=== PATIENT | male | born 1955 ===

== ENCOUNTER 2017-10-11 12:43 | Day surgery (SDC) | payer MEDICARE, BC ==
[~2017-10-11 12:43] MED LIST: Hair, Skin & N1 EACH PO; LISI20 PO; METF850 PO; MORP60ER PO; OMEP20ER PO; Zanaflex4 MG PO
== END 2017-10-11 23:16 | disposition home or self-care (01) ==
LOC: WOUND 12:43
DX: Z48.00 Encounter for change or removal of nonsurgical wound dressing (principal); E11.621 Type 2 diabetes mellitus with foot ulcer; E11.21 Type 2 diabetes mellitus with diabetic nephropathy; I70.209 Unspecified atherosclerosis of native arteries of extremities, unspecified extremity; I10 Essential (primary) hypertension; J44.9 Chronic obstructive pulmonary disease, unspecified; L97.529 Non-pressure chronic ulcer of other part of left foot with unspecified severity
CPT/HCPCS: G0463

== ENCOUNTER 2017-10-15 10:58 | Day surgery (SDC) | payer MEDICARE, BC | END 2017-10-15 15:03 | disposition home or self-care (01) | LOC: WOUND 10:58 | PROC: 2W3RX2Z Immobilization of Left Lower Leg using Cast (ICD-10-PCS; principal; 2017-10-15) | DX: Z48.00 Encounter for change or removal of nonsurgical wound dressing (principal); E11.621 Type 2 diabetes mellitus with foot ulcer; I70.209 Unspecified atherosclerosis of native arteries of extremities, unspecified extremity; I10 Essential (primary) hypertension; J44.9 Chronic obstructive pulmonary disease, unspecified; E11.21 Type 2 diabetes mellitus with diabetic nephropathy; Z89.412 Acquired absence of left great toe | CPT/HCPCS: G0463 ==

== ENCOUNTER 2017-10-22 10:18 | Day surgery (SDC) | payer MEDICARE, BC | END 2017-10-22 22:57 | disposition home or self-care (01) | LOC: WOUND 10:18 | DX: Z48.00 Encounter for change or removal of nonsurgical wound dressing (principal); E11.621 Type 2 diabetes mellitus with foot ulcer; I70.209 Unspecified atherosclerosis of native arteries of extremities, unspecified extremity; I10 Essential (primary) hypertension; J44.9 Chronic obstructive pulmonary disease, unspecified; L97.529 Non-pressure chronic ulcer of other part of left foot with unspecified severity | CPT/HCPCS: G0463 ==

== ENCOUNTER 2017-10-23 13:00 | Day surgery (SDC) | payer MEDICARE, BC | END 2017-10-23 13:34 | disposition home or self-care (01) | LOC: WOUND 13:00 | DX: Z48.00 Encounter for change or removal of nonsurgical wound dressing (principal); E11.621 Type 2 diabetes mellitus with foot ulcer; L97.529 Non-pressure chronic ulcer of other part of left foot with unspecified severity; I70.209 Unspecified atherosclerosis of native arteries of extremities, unspecified extremity; I10 Essential (primary) hypertension; J44.9 Chronic obstructive pulmonary disease, unspecified; E11.21 Type 2 diabetes mellitus with diabetic nephropathy | CPT/HCPCS: 93922; G0463 ==

== ENCOUNTER 2017-10-25 08:00 | Day surgery (SDC) | payer MEDICARE, BC | END 2017-10-25 11:00 | disposition home or self-care (01) | LOC: WOUND 08:00 | DX: Z48.00 Encounter for change or removal of nonsurgical wound dressing (principal); E11.621 Type 2 diabetes mellitus with foot ulcer; I70.209 Unspecified atherosclerosis of native arteries of extremities, unspecified extremity; I10 Essential (primary) hypertension; J44.9 Chronic obstructive pulmonary disease, unspecified; E11.21 Type 2 diabetes mellitus with diabetic nephropathy; L97.529 Non-pressure chronic ulcer of other part of left foot with unspecified severity ==

== ENCOUNTER 2017-10-29 12:33 | Day surgery (SDC) | payer MEDICARE, BC | END 2017-10-29 23:09 | disposition home or self-care (01) | LOC: WOUND 12:33 | DX: Z48.00 Encounter for change or removal of nonsurgical wound dressing (principal); E11.621 Type 2 diabetes mellitus with foot ulcer; I70.209 Unspecified atherosclerosis of native arteries of extremities, unspecified extremity; I10 Essential (primary) hypertension; E11.21 Type 2 diabetes mellitus with diabetic nephropathy; J44.9 Chronic obstructive pulmonary disease, unspecified; L97.529 Non-pressure chronic ulcer of other part of left foot with unspecified severity | CPT/HCPCS: G0463 ==

== ENCOUNTER 2017-11-01 12:30 | Day surgery (SDC) | payer MEDICARE, BC | END 2017-11-01 14:55 | disposition home or self-care (01) | LOC: WOUND 12:30 | DX: Z48.00 Encounter for change or removal of nonsurgical wound dressing (principal); E11.621 Type 2 diabetes mellitus with foot ulcer; I70.209 Unspecified atherosclerosis of native arteries of extremities, unspecified extremity; E11.21 Type 2 diabetes mellitus with diabetic nephropathy; I10 Essential (primary) hypertension; J44.9 Chronic obstructive pulmonary disease, unspecified; L97.529 Non-pressure chronic ulcer of other part of left foot with unspecified severity | CPT/HCPCS: G0463 ==

== ENCOUNTER 2017-11-08 00:54 | Day surgery (SDC) | payer MEDICARE, BC | END 2017-11-08 22:47 | disposition home or self-care (01) | LOC: WOUND 00:54 | PROC: 0HBNXZZ Excision of Left Foot Skin, External Approach (ICD-10-PCS; principal; 2017-11-08) | DX: Z48.00 Encounter for change or removal of nonsurgical wound dressing (principal); E11.621 Type 2 diabetes mellitus with foot ulcer; E11.21 Type 2 diabetes mellitus with diabetic nephropathy; L97.529 Non-pressure chronic ulcer of other part of left foot with unspecified severity; I70.209 Unspecified atherosclerosis of native arteries of extremities, unspecified extremity; I10 Essential (primary) hypertension; J44.9 Chronic obstructive pulmonary disease, unspecified | CPT/HCPCS: G0463 ==

== ENCOUNTER 2017-11-15 12:30 | Day surgery (SDC) | payer MEDICARE, BC | END 2017-11-15 14:21 | disposition home or self-care (01) | LOC: WOUND 12:30 | DX: Z48.00 Encounter for change or removal of nonsurgical wound dressing (principal); E11.621 Type 2 diabetes mellitus with foot ulcer; I70.209 Unspecified atherosclerosis of native arteries of extremities, unspecified extremity; I10 Essential (primary) hypertension; J44.9 Chronic obstructive pulmonary disease, unspecified; E11.21 Type 2 diabetes mellitus with diabetic nephropathy; L97.529 Non-pressure chronic ulcer of other part of left foot with unspecified severity | CPT/HCPCS: G0463 ==

== ENCOUNTER 2017-11-23 00:40 | Day surgery (SDC) | payer MEDICARE, BC | END 2017-11-23 22:00 | disposition home or self-care (01) | LOC: WOUND 00:40 | DX: Z48.00 Encounter for change or removal of nonsurgical wound dressing (principal); E11.621 Type 2 diabetes mellitus with foot ulcer; L97.529 Non-pressure chronic ulcer of other part of left foot with unspecified severity; I70.209 Unspecified atherosclerosis of native arteries of extremities, unspecified extremity; I10 Essential (primary) hypertension; J44.9 Chronic obstructive pulmonary disease, unspecified; E11.21 Type 2 diabetes mellitus with diabetic nephropathy | CPT/HCPCS: G0463 ==

== ENCOUNTER 2017-11-29 00:26 | Day surgery (SDC) | payer MEDICARE, BC | END 2017-11-29 23:17 | disposition home or self-care (01) | LOC: WOUND 00:26 | PROC: 0JBR0ZZ Excision of Left Foot Subcutaneous Tissue and Fascia, Open Approach (ICD-10-PCS; principal; 2017-11-29) | DX: Z48.00 Encounter for change or removal of nonsurgical wound dressing (principal); E11.621 Type 2 diabetes mellitus with foot ulcer; I70.209 Unspecified atherosclerosis of native arteries of extremities, unspecified extremity; L97.522 Non-pressure chronic ulcer of other part of left foot with fat layer exposed; I10 Essential (primary) hypertension; J44.9 Chronic obstructive pulmonary disease, unspecified; E11.21 Type 2 diabetes mellitus with diabetic nephropathy | CPT/HCPCS: G0463 ==

== ENCOUNTER 2017-12-06 00:59 | Day surgery (SDC) | payer MEDICARE, BC | END 2017-12-06 22:56 | disposition home or self-care (01) | LOC: WOUND 00:59 | PROC: 2W3TX2Z Immobilization of Left Foot using Cast (ICD-10-PCS; principal; 2017-12-06) | DX: E11.621 Type 2 diabetes mellitus with foot ulcer (principal); L97.529 Non-pressure chronic ulcer of other part of left foot with unspecified severity; I70.209 Unspecified atherosclerosis of native arteries of extremities, unspecified extremity; I10 Essential (primary) hypertension; J44.9 Chronic obstructive pulmonary disease, unspecified; E11.21 Type 2 diabetes mellitus with diabetic nephropathy | CPT/HCPCS: G0463 ==

== ENCOUNTER 2017-12-10 12:30 | Day surgery (SDC) | payer MEDICARE, BC | END 2017-12-10 22:58 | disposition home or self-care (01) | LOC: WOUND 12:30 | PROC: 0HBNXZZ Excision of Left Foot Skin, External Approach (ICD-10-PCS; principal; 2017-12-10) | DX: E11.621 Type 2 diabetes mellitus with foot ulcer (principal); I70.209 Unspecified atherosclerosis of native arteries of extremities, unspecified extremity; I10 Essential (primary) hypertension; J44.9 Chronic obstructive pulmonary disease, unspecified; L97.529 Non-pressure chronic ulcer of other part of left foot with unspecified severity | CPT/HCPCS: G0463 ==

== ENCOUNTER 2017-12-17 10:25 | Day surgery (SDC) | payer MEDICARE, BC | END 2017-12-17 23:26 | disposition home or self-care (01) | LOC: WOUND 10:25 | PROC: 0HBNXZZ Excision of Left Foot Skin, External Approach (ICD-10-PCS; principal; 2017-12-17) | DX: Z48.00 Encounter for change or removal of nonsurgical wound dressing (principal); E11.621 Type 2 diabetes mellitus with foot ulcer; L97.522 Non-pressure chronic ulcer of other part of left foot with fat layer exposed; I70.209 Unspecified atherosclerosis of native arteries of extremities, unspecified extremity; I10 Essential (primary) hypertension; J44.9 Chronic obstructive pulmonary disease, unspecified; E11.21 Type 2 diabetes mellitus with diabetic nephropathy ==

== ENCOUNTER → 2018-11-17 | Outpatient (CLI) | payer MEDICARE, BC ==
[2018-11-17 14:51] LABS: Microalbumin, Urine Quant. 38.8 mg/L (0.000-20.000)
== END | disposition home or self-care (01) ==
LOC: LAB 10:13 → LAB SHORT 10:13
DX: E11.9 Type 2 diabetes mellitus without complications (principal); R35.0 Frequency of micturition; E78.5 Hyperlipidemia, unspecified; D64.9 Anemia, unspecified; E03.9 Hypothyroidism, unspecified; E55.9 Vitamin D deficiency, unspecified
CPT/HCPCS: 81050; 82043

== ENCOUNTER 2020-12-13 10:28 | Emergency (ER) | payer MEDICARE, BC ==
[~2020-12-13] VITALS: Ht 188 cm; Wt 83.9 kg
[~2020-12-13 10:28] MED LIST changes: +METF500 PO; -METF850 PO
[2020-12-13] MEDS ORDERED: PLAVIX75 MG PO (10:42)
[2020-12-13] MEDS ORDERED: LYRICA100 M2 PO (10:44)
[2020-12-13] MEDS ORDERED: ROSUVASTATIN CAL5 MG PO (10:46)
== END 2020-12-13 11:40 | disposition home or self-care (01) ==
LOC: ER 10:28
DX: S00.83XA Contusion of other part of head, initial encounter (principal); Z79.899 Other long term (current) drug therapy; Z87.891 Personal history of nicotine dependence; W18.09XA Striking against other object with subsequent fall, initial encounter
CPT/HCPCS: 70450; 99283-25

== ENCOUNTER → 2022-05-16 | Outpatient (CLI) | payer MEDICARE, BC ==
[~2022-05-16] MED LIST changes: +LYRICA100 M2 PO; +PLAVIX75 MG PO; +ROSUVASTATIN CAL5 MG PO
[2022-05-19 13:23] LABS: Stool Occult Bld Immuno 1 Negative (NEGATIVE)
== END | disposition home or self-care (01) ==
LOC: LAB 08:00 → LAB SHORT 08:00
PROVIDERS: Family Medicine
DX: Z13.0 Encounter for screening for diseases of the blood and blood-forming organs and certain disorders involving the immune mechanism (principal)
CPT/HCPCS: G0328

== ENCOUNTER 2022-12-13 11:47 | Emergency (ER) | payer MEDICARE, BC ==
[~2022-12-13] VITALS: Ht 185.4 cm; Wt 82.5 kg
[2022-12-13] MEDS ORDERED: SULFAMETHOXAZO1 EAC1 PO (16:14)
[2022-12-13] MEDS ORDERED: XARELTO20 MG PO (16:14)
[2022-12-13] MEDS ORDERED: LATA.005SO BOTHEYES (16:15)
[2022-12-13] MEDS ORDERED: PROBIOTIC1 EA13 PO (17:45)
[2022-12-13] MEDS ORDERED: AUGMENTIN 500-1 EACH PO (17:45)
[2022-12-13] MEDS ORDERED: DOXY100 PO (17:45)
== END 2022-12-13 17:55 | disposition home or self-care (01) ==
LOC: ER 11:47
DX: L03.115 Cellulitis of right lower limb (principal); I10 Essential (primary) hypertension; E11.9 Type 2 diabetes mellitus without complications; Z79.02 Long term (current) use of antithrombotics/antiplatelets; Z79.899 Other long term (current) drug therapy; Z87.891 Personal history of nicotine dependence
CPT/HCPCS: 73620; 99283-25; A9270

== ENCOUNTER 2022-12-14 09:03 | Day surgery (SDC) | payer MEDICARE, BC ==
[~2022-12-14 09:03] MED LIST changes: +AUGMENTIN 500-1 EACH PO; +DOXY100 PO; +LATA.005SO BOTHEYES; +PROBIOTIC1 EA13 PO; +SULFAMETHOXAZO1 EAC1 PO; +XARELTO20 MG PO
== END 2022-12-14 22:43 | disposition home or self-care (01) ==
LOC: WOUND 09:03
DX: T25.231A Burn of second degree of right toe(s) (nail), initial encounter (principal); T25.221A Burn of second degree of right foot, initial encounter; X16.XXXA Contact with hot heating appliances, radiators and pipes, initial encounter; E11.621 Type 2 diabetes mellitus with foot ulcer; I70.209 Unspecified atherosclerosis of native arteries of extremities, unspecified extremity; E11.51 Type 2 diabetes mellitus with diabetic peripheral angiopathy without gangrene; J44.9 Chronic obstructive pulmonary disease, unspecified; E11.21 Type 2 diabetes mellitus with diabetic nephropathy; L97.509 Non-pressure chronic ulcer of other part of unspecified foot with unspecified severity
CPT/HCPCS: G0463

== ENCOUNTER 2022-12-21 02:25 | Day surgery (SDC) | payer MEDICARE, BC | END 2022-12-21 22:42 | disposition home or self-care (01) | LOC: WOUND 02:25 | DX: E11.621 Type 2 diabetes mellitus with foot ulcer (principal); I70.209 Unspecified atherosclerosis of native arteries of extremities, unspecified extremity; J44.9 Chronic obstructive pulmonary disease, unspecified; E11.21 Type 2 diabetes mellitus with diabetic nephropathy; S91.301D Unspecified open wound, right foot, subsequent encounter; L97.509 Non-pressure chronic ulcer of other part of unspecified foot with unspecified severity ==

== ENCOUNTER 2022-12-28 02:24 | Day surgery (SDC) | payer MEDICARE, BC | END 2022-12-28 22:51 | disposition home or self-care (01) | LOC: WOUND 02:24 | DX: T25.231A Burn of second degree of right toe(s) (nail), initial encounter (principal); E11.621 Type 2 diabetes mellitus with foot ulcer; L97.512 Non-pressure chronic ulcer of other part of right foot with fat layer exposed; I70.209 Unspecified atherosclerosis of native arteries of extremities, unspecified extremity; E11.51 Type 2 diabetes mellitus with diabetic peripheral angiopathy without gangrene; J44.9 Chronic obstructive pulmonary disease, unspecified | CPT/HCPCS: A9270 ==

== ENCOUNTER 2023-01-04 01:49 | Day surgery (SDC) | payer MEDICARE, BC | END 2023-01-04 22:35 | disposition home or self-care (01) | LOC: WOUND 01:49 | DX: E11.621 Type 2 diabetes mellitus with foot ulcer (principal); T25.321D Burn of third degree of right foot, subsequent encounter; T25.221D Burn of second degree of right foot, subsequent encounter; E11.51 Type 2 diabetes mellitus with diabetic peripheral angiopathy without gangrene; I70.209 Unspecified atherosclerosis of native arteries of extremities, unspecified extremity; J44.9 Chronic obstructive pulmonary disease, unspecified; E11.21 Type 2 diabetes mellitus with diabetic nephropathy; S91.301D Unspecified open wound, right foot, subsequent encounter; L97.509 Non-pressure chronic ulcer of other part of unspecified foot with unspecified severity | CPT/HCPCS: G0463 ==

== ENCOUNTER 2023-01-12 02:01 | Day surgery (SDC) | payer MEDICARE, BC | END 2023-01-12 22:50 | disposition home or self-care (01) | LOC: WOUND 02:01 | DX: E11.621 Type 2 diabetes mellitus with foot ulcer (principal); L97.512 Non-pressure chronic ulcer of other part of right foot with fat layer exposed; T25.321D Burn of third degree of right foot, subsequent encounter; T25.221D Burn of second degree of right foot, subsequent encounter; I70.209 Unspecified atherosclerosis of native arteries of extremities, unspecified extremity; L97.412 Non-pressure chronic ulcer of right heel and midfoot with fat layer exposed; E11.51 Type 2 diabetes mellitus with diabetic peripheral angiopathy without gangrene | CPT/HCPCS: A9270 ==

== ENCOUNTER 2023-01-26 00:51 | Day surgery (SDC) | payer MEDICARE, BC | END 2023-01-26 23:00 | disposition home or self-care (01) | LOC: WOUND 00:51 | DX: E11.621 Type 2 diabetes mellitus with foot ulcer (principal); L97.512 Non-pressure chronic ulcer of other part of right foot with fat layer exposed; T25.321D Burn of third degree of right foot, subsequent encounter; T25.221D Burn of second degree of right foot, subsequent encounter; X08.8XXD Exposure to other specified smoke, fire and flames, subsequent encounter; S91.301D Unspecified open wound, right foot, subsequent encounter; X58.XXXD Exposure to other specified factors, subsequent encounter; E11.51 Type 2 diabetes mellitus with diabetic peripheral angiopathy without gangrene; I70.209 Unspecified atherosclerosis of native arteries of extremities, unspecified extremity; J44.9 Chronic obstructive pulmonary disease, unspecified; E11.21 Type 2 diabetes mellitus with diabetic nephropathy | CPT/HCPCS: A9270 ==

== ENCOUNTER 2023-02-02 03:31 | Day surgery (SDC) | payer MEDICARE, BC | END 2023-02-02 22:43 | disposition home or self-care (01) | LOC: WOUND 03:31 | DX: E11.621 Type 2 diabetes mellitus with foot ulcer (principal); L97.512 Non-pressure chronic ulcer of other part of right foot with fat layer exposed; T25.321D Burn of third degree of right foot, subsequent encounter; T25.221D Burn of second degree of right foot, subsequent encounter; X08.8XXD Exposure to other specified smoke, fire and flames, subsequent encounter; S91.301D Unspecified open wound, right foot, subsequent encounter; X58.XXXD Exposure to other specified factors, subsequent encounter; E11.51 Type 2 diabetes mellitus with diabetic peripheral angiopathy without gangrene; I70.209 Unspecified atherosclerosis of native arteries of extremities, unspecified extremity; J44.9 Chronic obstructive pulmonary disease, unspecified; E11.21 Type 2 diabetes mellitus with diabetic nephropathy | CPT/HCPCS: G0463 ==

== ENCOUNTER 2023-02-09 01:56 | Day surgery (SDC) | payer MEDICARE, BC | END 2023-02-09 23:00 | disposition home or self-care (01) | LOC: WOUND 01:56 | DX: E11.621 Type 2 diabetes mellitus with foot ulcer (principal); L97.512 Non-pressure chronic ulcer of other part of right foot with fat layer exposed; S91.301D Unspecified open wound, right foot, subsequent encounter; T25.321D Burn of third degree of right foot, subsequent encounter; T25.221D Burn of second degree of right foot, subsequent encounter; X08.8XXD Exposure to other specified smoke, fire and flames, subsequent encounter; E11.51 Type 2 diabetes mellitus with diabetic peripheral angiopathy without gangrene; I70.209 Unspecified atherosclerosis of native arteries of extremities, unspecified extremity; J44.9 Chronic obstructive pulmonary disease, unspecified; E11.21 Type 2 diabetes mellitus with diabetic nephropathy | CPT/HCPCS: G0463 ==

== ENCOUNTER 2023-02-20 02:40 | Day surgery (SDC) | payer MEDICARE, BC | END 2023-02-21 23:10 | disposition home or self-care (01) | LOC: WOUND 02:40 | DX: E11.621 Type 2 diabetes mellitus with foot ulcer (principal); I70.209 Unspecified atherosclerosis of native arteries of extremities, unspecified extremity; L97.512 Non-pressure chronic ulcer of other part of right foot with fat layer exposed; T25.321D Burn of third degree of right foot, subsequent encounter; T25.221D Burn of second degree of right foot, subsequent encounter; S91.301D Unspecified open wound, right foot, subsequent encounter; J44.9 Chronic obstructive pulmonary disease, unspecified; E11.21 Type 2 diabetes mellitus with diabetic nephropathy; L97.509 Non-pressure chronic ulcer of other part of unspecified foot with unspecified severity; X58.XXXD Exposure to other specified factors, subsequent encounter | CPT/HCPCS: G0463 ==

== ENCOUNTER 2023-02-26 01:24 | Day surgery (SDC) | payer MEDICARE, BC | END 2023-02-26 22:58 | disposition home or self-care (01) | LOC: WOUND 01:24 | DX: E11.621 Type 2 diabetes mellitus with foot ulcer (principal); L97.512 Non-pressure chronic ulcer of other part of right foot with fat layer exposed; T25.321D Burn of third degree of right foot, subsequent encounter; T25.221D Burn of second degree of right foot, subsequent encounter; S91.301D Unspecified open wound, right foot, subsequent encounter; E11.51 Type 2 diabetes mellitus with diabetic peripheral angiopathy without gangrene; I70.209 Unspecified atherosclerosis of native arteries of extremities, unspecified extremity; J44.9 Chronic obstructive pulmonary disease, unspecified; E11.21 Type 2 diabetes mellitus with diabetic nephropathy; L97.509 Non-pressure chronic ulcer of other part of unspecified foot with unspecified severity | CPT/HCPCS: G0463 ==

== ENCOUNTER 2023-03-12 03:48 | Day surgery (SDC) | payer MEDICARE, BC | END 2023-03-12 23:17 | disposition home or self-care (01) | LOC: WOUND 03:48 | DX: E11.621 Type 2 diabetes mellitus with foot ulcer (principal); L97.509 Non-pressure chronic ulcer of other part of unspecified foot with unspecified severity; T25.321D Burn of third degree of right foot, subsequent encounter; T25.221D Burn of second degree of right foot, subsequent encounter; S91.301D Unspecified open wound, right foot, subsequent encounter; E11.51 Type 2 diabetes mellitus with diabetic peripheral angiopathy without gangrene; I70.209 Unspecified atherosclerosis of native arteries of extremities, unspecified extremity; J44.9 Chronic obstructive pulmonary disease, unspecified; E11.21 Type 2 diabetes mellitus with diabetic nephropathy | CPT/HCPCS: G0463 ==